=== PATIENT | female | born 1965 | race Caucasian/White ===

== ENCOUNTER 2018-02-19 21:28 | Emergency (ER) | payer BC ==
[2018-02-19] MEDS ORDERED: Ketorolac 30 MG/ML SDV ONE (23:00)
[2018-02-19] MEDS ORDERED: Ketorolac 30 MG/ML SDV IM ONE (23:15)
--- NOTE | 2018-02-20 09:56 | CR ---
Ankle Min 3V Rt INDICATION: ROLLED ANKLE PAIN COMPARISON: None FINDINGS: 3 views. No fracture, dislocation, or other acute bony abnormality. No joint space narr owing.
== END 2018-02-20 00:30 | disposition home or self-care (01) ==
LOC: JP.ED 21:28
DX: S93.401A Sprain of unspecified ligament of right ankle, initial encounter (principal); W01.0XXA Fall on same level from slipping, tripping and stumbling without subsequent striking against object, initial encounter; Y92.009 Unspecified place in unspecified non-institutional (private) residence as the place of occurrence of the external cause
CPT/HCPCS: 73610; 96372; 99283; J1885